=== PATIENT | female | born 2000 | race Caucasian/White ===

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

== ENCOUNTER 2022-08-24 11:19 | Emergency (ER) | payer OTHER, SELFPAY ==
[2022-08-24 11:20] VITALS: BP 127/79; PULSE 71; RESP 16; TEMP 36.8; O2SAT 99; BMI 16.9
--- NOTE | 2022-08-24 11:22 | EXP.UTC ---
Discharge Plan Disposition Patient Disposition: Home, Self-Care Condition: Good Prescriptions Prescriptions: New methylprednisolone 4 mg Tablets,Dose Pack 4 mg PO DIRECTED Qty: 21 0RF No Action fluconazole 150 mg tablet 150 mg PO Q3D Qty: 3 0RF Rx Instructions: i po q 72 hrs x 3 doses dispense 3 tabs azithromycin 250 MG tablet 250 mg PO UD DOSE PK Qty: 6 0RF Rx Instructions: Take two (2) tablets today, then one (1) tablet days #2 thru #5 methylprednisolone 4 MG tablets,dose pack 4 mg PO DIRECTED 6 Days Qty: 21 0RF ilxlysfygjbcbsl-nrtgxgjdq-FV 118 ML syrup 5 ml PO Q6HP PRN (Reason: Cough) Qty: 240 0RF Referrals Follow up/Referrals: Provider,Referral, MD [Primary Care Provider] - See instructions Activity Restrictions/Add. Instructions Additional Instructions/Restrictions: Drink plenty of fluids. Take tylenol for pain or fever. Take the medications as directed. Follow up with your regular doctor. Follow up with your dentist. GO TO THE ER FOR ANY WORSENING SYMPTOMS Clinical Impressions Clinical Impression: Jaw pain Instructions Patient Instructions: Jaw Pain: It's Not Just Stress Discharge ED Provider: Kar Ward [facility] [place] HPI General Stated complaint: LT jaw pain ear pain Time Seen by Provider: 08/24/22 11:22 History of Present Illness Provider Complaint: She reports that for the past 2 days she has had left jaw pain. She states that it feels like her left jaw catches. It is also popping frequently. She denies any injury. Related Data Previous Rx's Medication Instructions Recorded fluconazole 150 mg tablet 150 mg PO Q3D #3 tabs 02/06/20 azithromycin 250 mg tablet 250 mg PO UD DOSE PK #6 tabs 08/06/21 bhzrrfdwcahvccl-fflsastflclnnyg-EU 5 ml PO Q6HP PRN Cough #240 mL 08/06/21 2 mg-30 mg-10 mg/5 mL oral syrup methylprednisolone 4 mg tablets in 4 mg PO DIRECTED 6 days #21 08/06/21 a dose pack packets methylprednisolone 4 mg tablets in 4 mg PO DIRECTED #21 tabs 08/24/22 a dose pack Allergies Allergy/AdvReac Type Severity Reaction Status Date / Time house dust mite Allergy Verified 08/06/21 20:22 [facility] Disclaimer: The information contained in this section may have been updated after the patient was seen, as this information can be updated by other users. Social History Smoking Status: Never smoker alcohol intake: never substance use type: denies use current occupational status: employed Travel in the last 8 weeks: None ROS Obtained: Yes All systems reviewed & no additional complaints except as documented Constitutional Constitutional: Denies chills and Denies fever(s) Eyes Eyes: Denies eye discharge ENT Ears, Nose, Mouth, and Throat: Denies dizziness, Denies otalgia and Denies sore throat Cardiovascular Cardiovascular: Denies chest pain Respiratory Respiratory: Denies shortness of breath, Denies chest congestion, Denies cough, Denies stridor and Denies wheezing Gastrointestinal Gastrointestingal: Denies nausea or vomiting Musculoskeletal Musculoskeletal: Reports system reviewed and no additional complaints, except as documented and Denies arthralgias Integumentary/Breasts Skin/Breast: Denies rash Neurologic Neurologic: Denies dizziness and Denies paresthesias Allergic/Immunologic Allergic/Immunologic: Denies wheezing Physical Exam General General appearance: alert and in no apparent distress Head Head exam: atraumatic, normocephalic and normal inspection Eye Eye exam: Present normal appearance, PERRL and EOMI ENT ENT exam: Present normal exam, normal oropharynx, mucous membranes moist, TM's normal bilaterally and normal external ear exam Neck Neck exam: Present normal inspection, full ROM and trachea midline; Absent meningismus or lymphadenopathy Chest Chest inspection: Present normal inspection and symmetric chest wall rise; Absent tender
[2022-08-24 12:11] VITALS: BP 127/79; PULSE 71; RESP 16; TEMP 36.8; O2SAT 99
== END 2022-08-24 12:12 | disposition home or self-care (01) ==
PROVIDERS: Emergency Provider Nurse Practitioner Family
DX: R68.84 Jaw pain (principal)
CPT/HCPCS: 99212; 99214; G0463

== ENCOUNTER 2022-09-27 09:30 | Emergency (ER) | payer OTHER, SELFPAY ==
[2022-09-27 09:30] VITALS: BP 137/74; PULSE 78; RESP 16; TEMP 36.9; O2SAT 97; BMI 17.7
--- NOTE | 2022-09-27 09:42 | EXP.UTC ---
Discharge Plan Disposition Patient Disposition: Home, Self-Care Condition: Good Prescriptions Prescriptions: New amoxicillin [amoxicillin] 500 mg tablet 500 mg PO TID 10 Days Qty: 30 0RF nprexanlbjdumxl-yugllqwpk-IM [Bromfed DM] 2-30-10 mg/5 mL Syrup 5 ml PO Q6H PRN (Reason: Cough) Qty: 240 0RF ondansetron 4 mg Tablet,Disintegrating 4 mg PO Q8H PRN (Reason: Nausea) Qty: 12 0RF No Action fluconazole 150 mg tablet 150 mg PO Q3D Qty: 3 0RF Rx Instructions: i po q 72 hrs x 3 doses dispense 3 tabs azithromycin 250 MG tablet 250 mg PO UD DOSE PK Qty: 6 0RF Rx Instructions: Take two (2) tablets today, then one (1) tablet days #2 thru #5 methylprednisolone 4 MG tablets,dose pack 4 mg PO DIRECTED 6 Days Qty: 21 0RF pcuafbcnamlnqij-yngzisexq-HP 118 ML syrup 5 ml PO Q6HP PRN (Reason: Cough) Qty: 240 0RF methylprednisolone 4 mg Tablets,Dose Pack 4 mg PO DIRECTED Qty: 21 0RF Referrals Follow up/Referrals: Provider,Referral, MD [Primary Care Provider] - See instructions Activity Restrictions/Add. Instructions Additional Instructions/Restrictions: Drink plenty of fluids. Take tylenol or ibuprofen for pain or fever. Take the medications as directed. Follow up with your regular doctor. GO TO THE ER FOR ANY WORSENING SYMPTOMS Clinical Impressions Clinical Impression: Pharyngitis Stand Alone Forms Stand Alone Forms: Work/School Release Instructions Patient Instructions: Sore Throat, DI for Pharyngitis/Tonsillopharyngitis -- Adult Discharge ED Provider: Kar Ward [facility] General Stated complaint: sore throat, congestion Time Seen by Provider: 09/27/22 09:41 History of Present Illness Provider Complaint: She states that for the past 2 days she has had sore throat, chills, and malaise. Related Data Previous Rx's Medication Instructions Recorded fluconazole 150 mg tablet 150 mg PO Q3D #3 tabs 02/06/20 azithromycin 250 mg tablet 250 mg PO UD DOSE PK #6 tabs 08/06/21 ipdgbbkbetbwrql-ndghprvnbmulymv-QS 5 ml PO Q6HP PRN Cough #240 mL 06/03/22 2 mg-30 mg-10 mg/5 mL oral syrup methylprednisolone 4 mg tablets in 4 mg PO DIRECTED 6 days #21 08/06/21 a dose pack packets methylprednisolone 4 mg tablets in 4 mg PO DIRECTED #21 tabs 08/24/22 a dose pack amoxicillin 500 mg tablet 500 mg PO TID 10 days #30 tabs 09/27/22 fohxlmthjecocpb-aqqjnrdgypyywwf-UC 5 ml PO Q6H PRN Cough #240 mL 09/27/22 2 mg-30 mg-10 mg/5 mL oral syrup (Bromfed DM) ondansetron 4 mg disintegrating 4 mg PO Q8H PRN Nausea #12 tabs 09/27/22 tablet Allergies Allergy/AdvReac Type Severity Reaction Status Date / Time house dust mite Allergy Verified 08/06/21 20:22 [facility] Disclaimer: The information contained in this section may have been updated after the patient was seen, as this information can be updated by other users. Social History Smoking Status: Never smoker alcohol intake: never substance use type: denies use current occupational status: employed Travel in the last 8 weeks: None ROS Obtained: Yes All systems reviewed & no additional complaints except as documented Constitutional Constitutional: Reports chills and Reports fever(s) Eyes Eyes: Denies eye discharge ENT Ears, Nose, Mouth, and Throat: Reports as per HPI Cardiovascular Cardiovascular: Denies chest pain Respiratory Respiratory: Denies chest congestion and Reports cough Gastrointestinal Gastrointestingal: Reports nausea; Denies abdominal pain, constipation, cramping, diarrhea or vomiting Musculoskeletal Musculoskeletal: Denies arthralgias Integumentary/Breasts Skin/Breast: Denies rash Neurologic Neurologic: Denies paresthesias Physical Exam General General appearance: alert and in no apparent distress Head Head exam: atraumatic, normocephalic and normal inspection Eye Eye exam: Present normal appearance
[2022-09-27 09:50] LABS: UTC Strep Screen (Rapid) Negative (Negative)
[2022-09-27 09:55] VITALS: BP 137/74; PULSE 78; RESP 16; TEMP 36.9; O2SAT 97
== END 2022-09-27 09:55 | disposition home or self-care (01) ==
PROVIDERS: Emergency Provider Nurse Practitioner Family
DX: J02.9 Acute pharyngitis, unspecified (principal)
CPT/HCPCS: 87880; 99212; 99214; G0463

== ENCOUNTER 2022-12-26 10:52 | Emergency (ER) | payer OTHER, SELFPAY ==
[2022-12-26 10:59] VITALS: BP 163/105; PULSE 75; RESP 20; TEMP 36.8; O2SAT 98; BMI 16.9
[2022-12-26 11:34] VITALS: BP 134/83; PULSE 70; RESP 16; TEMP 36.8; O2SAT 98
--- NOTE | 2022-12-26 11:35 | HMH.EDGENADL ---
Discharge Plan Disposition Patient Disposition: Home, Self-Care Prescriptions Prescriptions: New prednisone 20 mg tablet 40 mg PO BID 5 Days Qty: 20 0RF No Action fluconazole 150 mg tablet 150 mg PO Q3D Qty: 3 0RF Rx Instructions: i po q 72 hrs x 3 doses dispense 3 tabs azithromycin 250 MG tablet 250 mg PO UD DOSE PK Qty: 6 0RF Rx Instructions: Take two (2) tablets today, then one (1) tablet days #2 thru #5 methylprednisolone 4 MG tablets,dose pack 4 mg PO DIRECTED 6 Days Qty: 21 0RF cpowyfcskuutxii-muzqelmxe-IE 118 ML syrup 5 ml PO Q6HP PRN (Reason: Cough) Qty: 240 0RF methylprednisolone 4 mg Tablets,Dose Pack 4 mg PO DIRECTED Qty: 21 0RF amoxicillin [amoxicillin] 500 mg tablet 500 mg PO TID 10 Days Qty: 30 0RF ydopdyzkytzgcex-edsjmpmqb-DP [Bromfed DM] 2-30-10 mg/5 mL Syrup 5 ml PO Q6H PRN (Reason: Cough) Qty: 240 0RF ondansetron 4 mg Tablet,Disintegrating 4 mg PO Q8H PRN (Reason: Nausea) Qty: 12 0RF Referrals Follow up/Referrals: Randolph Jeffrey, PT [Physical Therapist] - See instructions Kendall Trevino DO [Staff Physician] - See instructions Provider,Referral, MD [Primary Care Provider] - See instructions Activity Restrictions/Add. Instructions Additional Instructions/Restrictions: Dr. Trevino, family doctor, information here to establish care. Physical therapy information also. Take steroid once daily for 5 days. Call your family doctor to establish care for this visit to the emergency department and schedule follow-up within 48 hours to ensure improvement. If you have any worsening of your condition or any other concerning signs or symptoms, return to the emergency department or your primary care doctor for further evaluation. Clinical Impressions Clinical Impression: Arm paresthesia, left, Arm paresthesia, right, Paresthesia of right leg Stand Alone Forms Stand Alone Forms: Work/School Release Discharge ED Provider: Mauricio Sullivan General Adult HPI General Chief complaint: Extremity Problem,Nontraumatic Stated complaint: RT LEG NUMB HANDS GO IN AND OUT OF NUMBNESS Time Seen by Provider: 12/26/22 11:02 Mode of Arrival: Ambulatory Source of Information: Patient Limitations: No Limitations Description of Symptoms (Recalled from ER Triage Doc. by RN): pt to ed c/o right arm/leg numbness. pt reports she thinks she has a pinched nerve in her shoulder. pt denies any memory/speech deficit. pt denies any other symptoms. pt reports onset approx x3 days ago. History of Present Illness HPI narrative: 22-year-old female with no relevant medical history presenting with paresthesias which alternate. Patient states that this has been going on for a few days, but overall has had pain in her upper extremities for a couple of months. Painful side alternates sides between left and right, currently left-sided upper extremity, but patient started having right lower extremity numbness yesterday. No evidence of weakness of upper or lower extremities. No facial symptoms. Patient has taken neck and back, pain relief medication which has seemed to help. No bowel or bladder dysfunction, trauma, or any other concerns. Related Data Previous Rx's Medication Instructions Recorded fluconazole 150 mg tablet 150 mg PO Q3D #3 tabs 02/06/20 azithromycin 250 mg tablet 250 mg PO UD DOSE PK #6 tabs 08/06/21 vtfhrkwphwiywov-xlfdvmyjzrbwdie-CS 5 ml PO Q6HP PRN Cough #240 mL 08/06/21 2 mg-30 mg-10 mg/5 mL oral syrup methylprednisolone 4 mg tablets in 4 mg PO DIRECTED 6 days #21 08/06/21 a dose pack packets methylprednisolone 4 mg tablets in 4 mg PO DIRECTED #21 tabs 08/24/22 a dose pack amoxicillin 500 mg tablet 500 mg PO TID 10 days #30 tabs 09/27/22 vjicychosaehwnb-epnappvqlbpoywl-NH 5 ml PO Q6H PRN Cough #240 mL 09/27/22 2 mg-30 mg-10 mg/5 mL oral syrup (Bromfed DM) ondansetron 4 mg disintegrating 4 mg PO Q8H PRN Nausea #12 tabs 09/27/22 tablet
== END 2022-12-26 11:47 | disposition home or self-care (01) ==
PROVIDERS: Emergency Provider Emergency Medicine
DX: R20.2 Paresthesia of skin (principal)

== ENCOUNTER 2023-07-31 15:23 | Emergency (ER) | payer SELFPAY ==
--- NOTE | 2023-07-31 15:37 | XR_ITS ---
PROCEDURE INFORMATION: Exam: XR Right Clavicle, Complete Exam date and time: 07/31/2023 3:56 PM Age: 23 years old Clinical indication: Pain; Other: Clavicle; Additional info: Pain, lifted heavy trash bag felt pop TECHNIQUE: Imaging protocol: Radiologic exam of the right clavicle. Complete exam. Views: Any number of views. COMPARISON: CR XR SHOULDER RT MIN 2V 07/31/2023 3:53 PM FINDINGS: Bones/joints: There is no evidence of acute fracture.There is no evidence of malalignment or dislocation. Soft tissues: Normal. IMPRESSION: There is no evidence of acute fracture.There is no evidence of malalignment or dislocation.
--- NOTE | 2023-07-31 15:37 | XR_ITS ---
PROCEDURE INFORMATION: Exam: XR Right Shoulder Exam date and time: 07/31/2023 3:53 PM Age: 23 years old Clinical indication: Pain; Shoulder; Right; Additional info: Lifted heavy trashbag felt pop TECHNIQUE: Imaging protocol: Radiologic exam of the right shoulder. Views: 2 or more views. COMPARISON: CT CHEST WO CON 07/21/2020 11:37 PM FINDINGS: Bones/joints: There is no evidence of acute fracture.There is no evidence of malalignment or dislocation. Soft tissues: Normal. IMPRESSION: There is no evidence of acute fracture.There is no evidence of malalignment or dislocation.
[2023-07-31 16:20] VITALS: BP 141/93; PULSE 80; RESP 21; TEMP 36.9; O2SAT 100; BMI 17.9
--- NOTE | 2023-07-31 16:54 | ED_ITS ---
Discharge Plan Disposition Patient Disposition: Home, Self-Care Condition: Good Prescriptions Prescriptions: New prednisone 20 mg tablet 20 mg PO BID 5 Days Qty: 10 0RF No Action naproxen 375 mg tablet 375 mg PO BID Patient Comments: TAKE ONE TABLET BY MOUTH TWICE DAILY NEEDED Referrals Follow up/Referrals: Alesia Temple APRN [Primary Care Provider] - See instructions Activity Restrictions/Add. Instructions Additional Instructions/Restrictions: Keep appointment with Orthopedics as scheduled for tomorrow Take medication as prescribed Return if needed Straight to ER if any life threatening symptoms Clinical Impressions Clinical Impression: Problem of right upper extremity Stand Alone Forms Stand Alone Forms: Work/School Release Instructions Patient Instructions: Neuropathic Pain, Prednisone Discharge ED Provider: Alda Alamo [facility] General Stated complaint: WC 07/30, right shoulder pain Mode of Arrival: Ambulatory Source of Information: Patient Limitations: No Limitations Time Seen by Provider: 07/31/23 16:54 Description of Symptoms (Recalled from Triage Doc. by RN): PATIENT STATES SHE WAS AT WORK AND LIFTED A TRASH BAG THAT WAS TOO HEAVY AND FELT HER RIGHT SHOULDER POP AND THEN WENT NUMB. PATIENT REPORTS LIMITED ROM DUE TO PAIN HEENT Symptoms (Recalled from RN notes): No Resp Symptoms (Recalled from RN notes): No Skin Symptoms (Recalled from RN notes): No MS Symptoms (Recalled from RN notes): Yes Functional Status (Recalled from RN notes): WNL History of Present Illness Provider Complaint: patient states that she already has issues with her right shoulder and nerve pain States she has appointment with Orhtopedics tomorrow but she was at work today and was packing a heavy trash bag and felt something pop and electricity like pain shot down her right arm from her shoulder and it felt numb like and has continued throughout the day States that she was trying to hold off until she sees orthopedics tomorrow but boss wanted her to come in Related Data Home Medications Medication Instructions Recorded Confirmed naproxen 375 mg tablet 375 mg PO BID 07/31/23 07/31/23 Previous Rx's Medication Instructions Recorded prednisone 20 mg tablet 20 mg PO BID 5 days #10 tabs 07/31/23 Allergies Allergy/AdvReac Type Severity Reaction Status Date / Time house dust mite Allergy Verified 08/06/21 20:22 Worker's Comp Is this a Worker's Comp case?: No [facility] Disclaimer: The information contained in this section may have been updated after the patient was seen, as this information can be updated by other users. Medical History (Updated 07/31/23 @ 17:09 by Alda Alamo APRN) UTI (urinary tract infection) Depression Anxiety Social History Smoking Status: Never smoker alcohol intake: never substance use type: denies use current occupational status: employed Travel in the last 8 weeks: None ROS Obtained: Yes All systems reviewed & no additional complaints except as documented and Yes Systems reviewed as appropriate & no additional complaints except as documented Constitutional Constitutional: Reports system reviewed and no additional complaints, except as documented, Reports as per HPI, Denies frequent falls, Denies headache(s) and Denies weakness Eyes Eyes: Denies loss of vision ENT Ears, Nose, Mouth, and Throat: Reports system reviewed and no additional complaints, except as documented, Reports as per HPI, Denies abnormal hearing, Denies disequilibrium, Denies dizziness and Denies headache(s) Cardiovascular Cardiovascular: Reports system reviewed and no additional complaints, except as documented, Reports as per HPI and Denies syncope Respiratory Respiratory: Reports system reviewed and no additional complaints, except as documented and Reports as per HPI Gastrointestinal Gastrointestingal: Reports system reviewed and no additional complaints, except as documented and as per HPI Musculoskeletal Musculoskeletal: Reports system reviewed and no additional complaints, except as documented, Reports as per HPI, Denies abnormal gait and Reports other (pain and tingling in right shoulder after lifting heavy bag) Neurologic Neurologic: Reports system reviewed and no additional complaints, except as documented, Reports as per HPI, Denies abnormal gait, Denies abnormal hearing, Denies abnormal movements, Denies abnormal speech, Denies behavioral changes, Denies confusion, Denies convulsions, Denies disequilibrium, Denies dizziness, Denies focal weakness, Denies frequent falls, Denies headache(s), Denies lack of coordination, Denies loss of vision, Denies other visual disturbances, Denies restless legs, Denies seizure-like activity, Denies syncope and Denies weakness Physical Exam General General appearance: alert and in no apparent distress ENT ENT exam: Present mucous membranes moist Respiratory Respiratory exam: Present normal lung sounds bilaterally; Absent respiratory distress or wheezes Cardiovascular Cardiovascular exam: Present regular rate, normal rhythm and normal heart sounds Extremities Exam Extremities exam: Present other (pain, tingling like pain in right shoulder and clavicle area denies known injury pain started after lifting heavy trash at work, able to move fingers easily able to make fist pain/discomfort with trying to raise arm) Neurological Exam Neurological exam: Present alert, oriented X3 and normal gait Medical Decision Making [place] Inquiry Pt receiving controlled substance: No [place] was queried for this patient: No Vital Signs: 07/31/23 16:20 Temperature 98.5 F Temperature Source Oral Pulse Rate [Left Brachial] 80 Respiratory Rate 21 Blood Pressure [Left Arm] 141/93 H Blood Pressure Mean [Left Arm] 109 Blood Pressure Source [Left Arm] Automatic Cuff Blood Pressure Position [Left Arm] Sitting 02 Sat by Pulse Oximetry 100 Oxygen Delivery Method Room Air Orders (Tests/Meds): ORDERS Category Date Time Status Clavicle XR right [XR clavicle RT] Stat Exams 07/31/23 15:37 Taken XR shoulder RT min 2V Stat Exams 07/31/23 15:37 Taken Radiology Data #1: Image(s): Shoulder Image Reviewed: Yes I have reviewed radiologist's interpretation IMPRESSION: There is no evidence of acute fracture.There is no evidence of malalignment or dislocation #2: Image(s): Clavicle Image Reviewed: Yes I have reviewed radiologist's interpretation IMPRESSION: There is no evidence of acute fracture.There is no evidence of malalignment or dislocation. Medical Decision Narrative: Pateint denies pregancy
[2023-07-31 17:13] VITALS: BP 141/93; PULSE 80; RESP 21; TEMP 36.9; O2SAT 100
== END 2023-07-31 17:17 | disposition home or self-care (01) ==
PROVIDERS: Emergency Provider Nurse Practitioner; PCP Nurse Practitioner
DX: M79.601 Pain in right arm (principal); M25.511 Pain in right shoulder
CPT/HCPCS: 73000; 73030; 99212; 99214; G0463

== ENCOUNTER 2023-10-19 08:00 | Outpatient (RCR) | payer OTHER, SELFPAY | END 2023-10-19 09:30 | disposition home or self-care (01) | LOC: PT 08:00 | PROVIDERS: Visit Provider Orthopaedic Surgery | DX: M25.511 Pain in right shoulder (principal); M25.512 Pain in left shoulder; M54.6 Pain in thoracic spine | CPT/HCPCS: 97014; 97110; 97163; G0283 ==

== ENCOUNTER 2024-09-16 07:35 | Outpatient (CLI) | payer OTHER, SELFPAY ==
--- OUTSIDE RECORDS SUMMARY | 2024-09-16 07:38 | XMS_ITS | Patient Health Record ---
Author Organization [facility] Address [address] [place] [address] Care Team Providers Care Criminal Justice Social Worker Name Role Phone Yary Faulkner Unavailable [phone] Tara Asif Unavailable [phone] Delphine De Paz Unavailable [phone] Allergies No Known Allergies Reason For Referral No Information Medications Medication SIG (Take, Route, Frequency, Duration) Notes Start Date End Date Status Naproxen 375 MG Tablet TAKE ONE TABLET B Y MOUTH TWICE DAILY NEEDED Oral; Duration: 30 Days Not-Taking/PRN Cyclobenzaprine HCl 10 MG Tablet TAKE ONE TABLET BY MOUTH THREE TIMES DAILY NEEDED for back pain Oral; Duration: 5 Days Active Cryselle-28 0.3-30 MG-MCG Tablet 1 tablet Orally Once a day Not-Taking/PRN Social History Tobacco Use: Social History Observation Description Date Details (start date - stop date) Never Smoker NA - NA Social History Drugs/Alcohol: Social Info Question Answer Notes Drugs Have you used drugs other than those for medical reasons in the past 12 months? No Drug/Alcohol: Social Info Question Answer Notes AUDIT-C (Standard) Did you have a drink containing alcohol in the past year? Yes Tobacco Use: Social Info Question Answer Notes Tobacco Control (Standard) Tobacco use: Nonsmoker Additional Details Category Social Info Options Details Miscellaneous: Domestic violence: No Do you have any jainism, m oral, or cultural beliefs or customs that your provider should know about? No Would you object to blood products in the event of an emergency? No Vital Signs Heart Rate 78 /min 07/01/2024 Blood pressure diastolic 78 mm Hg 07/01/2024 Oximetry 99 % 07/01/2024 Height 69 in 07/01/2024 Blood pressure systolic 122 mm Hg 07/01/2024 Weight 128 lbs 07/01/2024 BMI 18.9 kg/m2 07/01/2024 Encounters Encounter Location Date Provider Diagnosis [facility] [address] [facility] [address] [address] [place] [address] 05/28/2024 Delphine De Paz [facility] [address] [facility] [address] [place] [address] 07/01/2024 [place] Sterilization consul t Z30.09 [facility] [address] [place] [address] 05/23/2024 Yary Faulkner Encounter for counseling regarding contraception Z30.09 [facility] [address] [facility] [address] [place] [address] 05/28/2024 Tara Asif Consultation for female sterilization Z30.09 Assessments Encounter Date Diagnosis (ICD Code) Assessment Notes Treatment Notes Treatment Clinical Notes Section Notes 05/23/2024 Encounter for counseling regarding contraception (ICD-10 - Z30.09) Contraceptive options reviewed including OCP, patch, vaginal ring, depo Provera, Nexplanon and IUD. Risks, benefits, and general uses are discussed with the patient and questions answered. Desires to schedule consultation for SALUD agrawal MD. 05/28/2024 Consultation for female sterilization (ICD-10 - Z30.09) Discussed contraceptive options and encouraged trial of IUD. Discussed surgical sterilization at age 24 has a very high rate of regret. She has no difficulty using her current form of contraception and has other very effective options she may consider prior. Discussed my experience that opinions regarding childbearing often evolve over a lifetime. I decline to schedule tubal sterilization at this time and discussed with her the reasoning behind my opinion. I have encouraged her to consider IUD or even alternate OCP for prevention which are both highly effective. 07/01/2024 Sterilization consult (ICD-10 - Z30.09) - contraceptive options reviewed - pt desires surgical sterilization - procedure reviewed as laparoscopic bilateral salpingectomy - discussed the irreversible nature of the procedure and possibility of tubal regret - surgical risks reviewed including blood loss, infection, and possible damage to bladder/bowel/u reters/blood vessels/nerves - recovery expectations reviewed - questions answered - consents signed - action sent for scheduling - RTC post-op or PRN Plan Of Treatment Next Appt Details Provider Name:Patricia Cody, 09/18/2024 08:00:00 AM, [address], [place], [address], Insurance Providers Payer Name Payer Address Payer Phone Subscriber Number Group Number Insured Name Patient Relationship to Insured Coverage Start Date Coverage End Date [facility] [address] [place] [phone] [id number] Samia Barber Self - patient is the insured Medical (General) History Medical History History ICD Code Medical History: Anxiety Surgical History Surgery Date(Month/Year) Pinky Finger surgery Broken Arm
--- OUTSIDE RECORDS SUMMARY | 2024-09-16 07:38 | XMS_ITS | Clinical Summary ---
Author Organization Healthcare Address [address] [place] [address] Care Team Providers Care Pneumatic Tester Mechanic Name Role Phone Nighat Aviles Primary Care Provider Immunizations Immunization Administration Dates Next Due DTaP 06/20/2007, 4,2002,2002,03/2002 Hep B, adult 2002,2002,2002 Hib (PRP-OMP) 04/11/2003,2002,2002 ,2002 IPV 06/20/2007,2002,2002 ,2002 MMR 06/20/2007,04/11/2003 Meningococcal MCV4O 08/13/2013 Meningococcal MPSV4 08/13/2013 Pneumococcal Conjugate PCV 7 2002,08/28/19 03,2002 Tdap 08/13/2013 Varicella 06/20/2007,04/11/2003 Family History Medical History Relation Name Comments Alcohol abuse Father Drug abuse Father Relation Name Status Comments Father Social History Tobacco Use Types Packs/Day Years Used Date Smoking Tobacco: Never Alcohol Use Standard Drinks/Week Comments No 0 (1 standard drink = 0.6 oz pur e alcohol) Comments Unknown Sex and Gender Information Value Date Recorded Sex Assigned at Not on file Legal Sex Female 7:55 PM EDT Gender Identity Not on file Sexual Orientation Not on file Last Filed Vital Signs Vital Sign Reading Time Taken Comments Blood Pressure 104/68 04/03/2019 1:39 PM EST Pulse 66 04/03/2019 1:39 PM EST Temperature 36.7 C (98.1 F) 04/03/2019 1:39 PM EST Respiratory Rate - - Oxygen Saturation - - Inhaled Oxygen Concentration - - Weight 50.4 kg (111 lb) 06/03/2019 11:08 AM EDT Height 172.8 cm (5' 8.03 ) 04/03/2019 1:39 PM ES T Body Mass Index - - Plan of Treatment Health Maintenance Due Date Last Done Comments [facility]-Depression Screening 2002 [facility]-Infant/Child/Adol SDOH Screenings 2002 HPV Vaccines (1 - 3-dose series) 2017 [facility]- SDOH Screenings 2020 [facility]-Adult SDOH Screenings 2020 [facility]-Pap Smear 2023 [facility]-DTaP,Tdap,and Td Vaccines (7 - Td or Tdap) 08/14/2023 08/13/2013, 06/20/2007, 07/15/2003, Additional history exists [facility]-HZFKR-18 Vaccine ( - 2023- season) 2023 [facility]-Influenza Vaccine (#1) 2024 [facility]-Zoster Vaccines (1 of 2) 2052 06/20/2007, 04/11/2003 [facility]-Hepatitis B Vaccines Completed 003, 2002, 2002 [facility]-Pneumococcal Vaccine: Pediatrics (0 to 5 Years) and At-Risk Patients (6 to 49 Years) Aged Out 2002, 2002, 2002 No longer eligible based on patient's age to complete this topic [facility]-HIB Vaccines Completed 04/11/2003, , 2002, Additional history exists [facility]-IPV Vaccines Completed 06/20/2007, , 2002, Additional history exists [facility]-Varicella Vaccines Completed 06/20/2007, 2003 [facility]-Hepatitis A Vaccines Completed 05/08/2018, 09/05 [facility]-Rotavirus Vaccines Aged Out No lo nger eligible based on patient's age to complete this [place] [address] [address] [facility] MEDICAID Care Teams Pneumatic Tester Mechanic Relationship Specialty Start Date End Date Nighat Aviles PA [address] [place] [address] [place] [address] PCP - General 07/17/20
--- OUTSIDE RECORDS SUMMARY | 2024-09-16 07:38 | XMS_ITS | Clinical Summary ---
Author Organization [employer] ([place], [place], [place], [place]) Address [address] [place] [address] Care Team Providers Care Gas Load Dispatcher Name Role Phone Unavailable Primary Care Provider Unavailabl e Allergies No known active allergies Medications naproxen (NAPROSYN) 375 MG tablet Take 1 tablet (375 mg total) by mouth 2 (two) times daily as needed. 07/03/2023 Active norgestrel-ethin yl estradioL (LO/OVRAL) 0.3-30 mg-mcg per tablet Take 1 tablet by mouth daily. Active Family History Medical History Relation Name Comments Diabetes Other High blood pressure Other Relation Name Status Comments Other Social History Tobacco Use Types Packs/Day Years Used Date Smoking Tobacco: Never Smokeless Tobacco: Never Tobacco Cessation:Counseling Given: Not Answered Food Insecurity Answer Date Recorded Food run out past 12 months Not on file 08/05 Food did not last past 12 months Not on file 08/31/2023 Employment Answer Date Recorded Help finding and keeping a job Not on file 0 08/31/2023 Family and Community Support Answer Charan e Recorded Help with Day to Day Activities Not on file 08/31/2023 Feeling Lonely or Isolated Not on file 08/30 Educational Attainment Answer Date Cliff rded Speak language other than Indonesian at home Not on file 08/31/2023 Want help with school or training Not on file 08/31/2023 Substance Use Answer Date Recorded Used prescription meds for non-medical reasons N ot on file 08/31/2023 Used illegal drugs past 12 months Not on file 08/31/2023 Comments Unknown Sex and Gender Information Value Date Recorded Sex Assigned at Not on file Legal Sex Female 4:28 PM CDT Gender Identity Not on file Sexual Orientation Not on file Last Filed Vital Signs Vital Sign Reading Time Taken Comments Blood Pressure 131/71 10/31/2023 11:10 AM EDT Pulse 75 10/31/2023 11:10 AM EDT Temperature - - Respiratory Rate - - Oxygen Saturation - - Inhaled Oxygen Concentration - - Weight 55.3 kg (122 lb) 10/31/2023 11:10 AM EDT Height 175.3 cm (5' 9 ) 10/31/2023 11:10 AM EDT Body Mass Index 18.02 10/31/2023 11:10 AM EDT Plan of Treatment Health Maintenance Due Date Last Done Comments Depression Screening (12+) 2014 HIV Screening 2017 Meningococcal B Vaccine (1 of 2 - Standard) 2018 Hepatitis C Screening 2020 Pap Smear 2023 DTAP/TDAP/TD VACCINES (7 - Td or Tdap) 08/14/2023 08/13/2013, 06/20/2007, 07/15/2003, Additional history exists COVID-19 VACCINE ( - 2023- season) 2023 Tobacco Cessation Counseling and Screening (12+) 10/30/2024 10/31/2023 Influenza Vaccine (#1) 2024 Pneumococcal Vaccine: 0-49 Years Aged Out 2002, 2002, 2002 No longer eligible based on patient's age to complete this topic Insurance [employer] [facility] [place]
--- OUTSIDE RECORDS SUMMARY | 2024-09-16 07:38 | XMS_ITS | Data Portability ---
Author Organization [employer] [facility] Address [address] [place] [address] Assessment No assessment recorded. Plan of Treatment Reminders Order Date Submit Date Provider Last Modified By Organization Details Last Modified Time Details Appointments None recorded. Lab None recorded. Referral None recorded. Procedures None recorded. Surgeries None recorded. Imaging XR, shoulder, 2 or more view 2023 024 KAVYA Not available 4 08:48:28 XR, thoracic spine 2023 024 KAVYA Not available 4 08:48:19 Medication Orders None recorded. Patient TargetsNo targets recorded. Patient InstructionsNo instructions recorded. Reason for Referral None Reported. Results Created Date Observation Date Name Description Value Unit Range Abnormal Flag Note LastModifiedBy Organization Detail LastModifiedTime 06/21/19 24 XR, thora cic spine No observ ation record ed. [email or web address] Not Available 2023 15:06:14 06/21/19 24 XR, shoul heather, 2 or more view No observ ation record ed. Not Available 07/27 14:19:17 07/31/19 24 07/31/2023 XR, shoul heather, 2 or more view No observ ation record ed. [facility] [address], [place], [id number], 08/15/2023 09:31:00 07/31/19 24 07/31/2023 XR, clavi gabriela No observ ation record ed. [email or web address], [place], [id number], 08/15/2023 09:30:51 Result Notes None recorded. Medical Equipment None Reported. Allergies No known drug allergies Medications Name Sig Start Date Stop Date Status Note LastModified by Organization Details LastModified Time cyclobenzap rine 10 mg tablet Take 1 tablet 3 times a day by oral route as needed, for back pain. active Not Available Not Available No t Available amoxicillin 500 mg capsule TAKE 1 CAPSULE BY MOUTH THREE TIMES DAILY FOR 10 DAYS 06/19 completed Not Available Not Available Not Available naproxen 375 mg tablet TAKE ONE TABLET BY MOUTH TWICE DAILY NEEDED active Not Available Not Available No t Available prednisone 20 mg tablet TAKE ONE TABLET BY MOUTH THREE TIMES DAILY FOR 3 DAYS active Not Available Not Available No t Available methylpredn isolone 4 mg tablets in a dose pack TAKE DIRECTED 06/19 completed Not Available Not Available Not Available bromphenira mine-pseudo ephedrine-D M 2 mg-30 mg-10 mg/5 mL oral syrup TAKE 5 ML BY MOUTH EVERY 6 HOURS NEEDED FOR COUGH 06/19 completed Not Available Not Available Not Available ondansetron 4 mg disintegrat ing tablet DISSOLVE 1 TABLET IN MOUTH EVERY 8 HOURS NEEDED FOR NAUSEA 06/19 completed Not Available Not Available Not Available Cryselle (28) 0.3 mg-30 mcg tablet Take 1 tablet every day by oral route. active Not Available Not Available No t Available cyclobenzap rine 5 mg tablet TAKE 1 TABLET BY MOUTH NEEDED THREE TIMES DAILY FOR 10 DAYS 06/19 completed Not Available Not Available Not Available Vitals Date Recorded Body weight Body mass index (BMI) Body height Heart rate Oxygen saturation Oxygen saturation in Arterial blood by Pulse oximetry Systolic And Diastolic Provider Name and Address Organization Details Last Updated DateTime 4 96147.4 8 g 17.9 kg/m2 175.26 cm 59 /min 99 % 99 % 130/79 mm[Hg] Haylee Berry txtr, [employer] 14:17:10 Social History Question Answer Notes LastModified by Organizat ion Details LastModified Time Tobacco Smoking Status Never Smoker Haylee hernandez [facility] 06/20/2023 14:13:55 Is Your Home Air Conditioned? Yes Information not available 06/20/2023 Are You Blind Or Do You Have Difficulty Seeing? No Information not available 06/20/2023 What Is Your Level Of Caffeine Consumption? Heavy Information not available 06/20/2023 Are You A Caregiver? No Information not available 06/20/2023 In The 14 Days Before Symptom Onset, Have You Had Close Contact With A Laboratory-confir med COVID-19 While That Case Was Ill? No Information not available 06/20/2023 In The 14 Days Before Symptom Onset, Have You Had Close Contact With A Person Who Is Under Investigation For COVID-19 While That Person Was Ill? No Information not available 06/20/2023 Have You Been To An Area Known To Be High Risk For COVID-19? No Information not available 06/20/2023 Are You Deaf Or Do You Have Serious Difficulty Hearing? No Information not available 06/20/2023 What Type Of Diet Are You Following? GLUTENFREE Information not available 06/20/2023 Who Is Your Employer? [employer] Information not available 06/20/2023 Have There Been Any Changes To Your Family Or Social Situation? No Information no t available 06/20/2023 What Was The Date Of Your Most Recent Tobacco Screening? 06/20/2023 Information not available 06/20/2023 Have You Ever Been Counseled For Unhealthy Alcohol Use? No Information not available 06/20/2023 What Is Your Relationship Status? Single Information not available 06/20/2023 Do You Use Your Seat Belt Or Car Seat Routinely? Yes Information not available 06/20/2023 Do You Have Smoke And Carbon Monoxide Detectors In Your Home? Yes Information not available 06/20/2023 Has Tobacco Cessation Counseling Been Provided? No Information not available 06/20/2023 Have You Recently Traveled Abroad? No Information not available 06/20/2023 Do You Have Difficulty Walking Or Climbing Stairs? No Information not available 06/20/2023 What Contraceptive Method Was Reported At Start Of This Visit? Combined Oral Contraceptive Pills Information not available 06/20/2023 Sex: Female Functional Status Question Answer Note LastModified by Organizat ion Details LastModified Time Do you use any illicit or recreational drugs? No Information not available 06/20/2023 What is your level of alcohol consumption? Occasional Information not available 06/20/2023 Are you currently employed? Yes Information not available 06/20/2023 Do you have transportation difficulties? No Information not available 06/20/2023 Are you able to walk? YESWOREST Information not available 06/20/2023 Do you have difficulty doing errands alone? No Information not available 06/20/2023 Are you able to care for yourself? Yes Information n ot available 06/20/2023 Do you have difficulty dressing or bathing? No Information not available 06/20/2023 Mental Status Question Answer Note LastModified by Organization D etails LastModified Time Do you have difficulty concentrating, remembering or making decisions? No Information no t available 06/20/2023 Family History Nothing Reported. Medical History No medical history recorded. Gynecological History Statement/Question Response Date of Last Pap Smear Most Recent Mammogram Obstetrics History GPAL:G 0 P 0 0 0 0 Past Encounters Encounter ID Performer Location Encounter Start Date Encounter Closed Date Diagnosis/Indication Diagnosis SNOMED-CT Code Diagnosis ICD10 Code Diagnosis Note [id number] Alesia [address] [address] 06/20/2023 13:39:29 06/20/2023 15:07:31 Thoracic back pain 660869312 M54.6 Pain of le ft shoulder joint 1098353283 3095836 M25.512 Body mass index less than 20 581966776 Z68.1 Health Concerns Section Related Observation LastModified by Organization Detai ls LastModified Time None Recorded Concern Status LastModified by Organization Details LastModified Time None Recorded Advance Directives Directive None Recorded Payers Insurance Date Sequence Insurance Name Policy Number Policy Snider Covered Member ID Snider Member ID Guarantor Name 12/09/2023 [place] GEORGIE Barber 12/07/2023 1 [facility] [place] GEORGIE Barber [id number] Samia Barber Notes Date Note Type Note Provider Name and Address Organization Details Recorded Time 06/20/2023 text/html pt here today to est PCP. pt states that she has been having back and shoulder issues for several months. pt states that around 7 months pt has been having back pain and left shoulder pain. in jan 2023 she went to the ER and the doc told her she probably had a herniated disc and told her she needed some steroids and sent her on her way . pt states that she went to another doc and she didnt like her so she never went back. pt states that a few months before jan she had been going to the chiropractor and that didnt seem to help. pt states that her lower back hurts all the time but it is manageable and that it gets worse if she stands for a long period of time. and that her left shoulder hurts and has a burning pain sensation more so after she works or stands for a long period such as washing the dishes. 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 assessment WNL today, however pt states that she hasnt really done anything today to flare it up . i am going to start out with ordering xray to r/o any herniated disc, nerve issues scoliosis etc. Alesia Temple APRN [address] [facility], [place], [address], [facility] [employer] 06/20/2023 15:46:29 OBGyn Episode No OBEpisode recorded.
--- OUTSIDE RECORDS SUMMARY | 2024-09-16 07:38 | XMS_ITS | Referral Summary ---
Author Organization [employer] ([place], [place], [place], [place]) Address [address] [place] [address] Care Team Providers Care Apartment Community Manager Name Role Phone Unavailable Primary Care Provider Unavailabl e Allergies No known active allergies Medications naproxen (NAPROSYN) 375 MG tablet Take 1 tablet (375 mg total) by mouth 2 (two) times daily as needed. 07/03/2023 Active norgestrel-ethin yl estradioL (LO/OVRAL) 0.3-30 mg-mcg per tablet Take 1 tablet by mouth daily. Active Social History Tobacco Use Types Packs/Day Years [...] Date Cliff rded Speak language other than Kuwaiti at home Not on file 08/31/2023 Want [...] 10/31/2023 11:10 AM EDT Plan of Treatment Not on file Insurance [facility] [place]
[2024-09-16 07:41] LABS: Microscopic, Urine URINE MICROSCOPIC (MICROSCOPIC)
[2024-09-16 08:56] LABS: Bilirubin,Urine Negative (Negative); Color,Urine YELLOW (Yellow); Glucose,Urine (UA) Negative (Negative); Ketones,Urine Negative (Negative); Leukocyte Esterase,Urine Negative (Negative); PH,Urine 6.0 (5.0-8.5); Protein,Urine Negative (Negative); Specific Gravity, Urine 1.020 (1.005-1.030); Urobilinogen,Urine 0.2 EU/dl (0.2)
[2024-09-16 09:14] LABS: Bacteria,Urine Trace /lpf; RBC,Urine Occasional #/hpf (0-3); WBC,Urine Occasional #/hpf (0-3)
== END 2024-09-16 23:59 | disposition home or self-care (01) ==
LOC: LAB 07:37
PROVIDERS: Visit Provider Obstetrics & Gynecology
DX: Z01.810 Encounter for preprocedural cardiovascular examination (principal)
CPT/HCPCS: 81001; 87086

== ENCOUNTER 2024-10-30 12:57 | Outpatient (CLI) | payer OTHER, SELFPAY ==
--- OUTSIDE RECORDS SUMMARY | 2024-09-18 04:00 | XMS_ITS ---
Author Organization [facility] Address [address] [place] [address] Care Team Providers Care Rag Boiler Name Role Phone Yary Faulkner Unavailable [phone] Patricia Cody Unavailable [phone] REASON FOR VISIT LAP CHUYITA SLAP Encounters Encounter Location Date Provider Diagnosis [facility] [address] [place] [address] 09/18/2024 Patricia Cody Plan Of Treatment No Information Progress Notes * Erika BARBEROB: 3 (24 yo F)Acc No.[id number]:09/18/2024 Patient: Samia Estrada Provider: Maya Cody MD :2000 A ge:24 Y S ex:Female Date:09/18/2024 Address:[address] [place] [address] K[place] [id number] Subjective: * Chief Complaints: * L AP CHUYITA SLAP Billing Information: * Procedure Codes: * Electronic signature of Anyi Coyd MD on 10/31/2024 at 12:27 PM EDT Sign off status: Pending Visit Status: C HK (Check Out) * Provider: Maya Cody MD Date: 09/18/2024 Generated for Alyssa lee/Aj/Andressmitting on: 10/31/2024 12:27 PM EDT
[2024-10-30 16:29] LABS: Coronavirus 19, PCR Not Detected (NotDetected); Influenza A, PCR Not Detected (NotDetected); Influenza B, PCR Not Detected (NotDetected)
--- OUTSIDE RECORDS SUMMARY | 2024-10-31 12:27 | XMS_ITS | Clinical Summary ---
Author Organization [facility] Address [address] [place] [address] Care Team Providers Care Organ Tuner Name Role Phone Nighat Aviles Primary Care [...] 08/14/2023 08/13/2013, 06/20/2007, 07/15/2003, Additional history exists SGR-POUAN-06 Vaccine ( - 2023- season) 2023 UKY-Influenza [...] complete [place] [address] [facility] MEDICAID Care Teams Organ Tuner Relationship Specialty Start Date End Date Nighat Aviles PA [address] [place] [id number] PCP - General 07/17/20
--- OUTSIDE RECORDS SUMMARY | 2024-10-31 12:27 | XMS_ITS | Clinical Summary ---
Author Organization [employer] ([place], [place], [place], [place]) Address [address] [place] [address] Care Team Providers Care Director Radio News Name Role Phone Unavailable Primary Care Provider [...] Date Cliff rded Speak language other than Luxembourgish at home Not on file 08/31/2023 Want [...] patient's age to complete this topic Insurance [facility] [place]
--- OUTSIDE RECORDS SUMMARY | 2024-10-31 12:27 | XMS_ITS | Referral Summary ---
Author Organization [employer] ([place], [place], [place], [place]) Address [address] [place] [address] Care Team Providers Care Outside Industrial Sales Representative Name Role Phone Unavailable Primary Care Provider [...] Date Cliff rded Speak language other than Latvian at home Not on file 08/31/2023 Want [...] Plan of Treatment Not on file Insurance [facility] [place]
--- OUTSIDE RECORDS SUMMARY | 2024-10-31 12:27 | XMS_ITS | Patient Health Record ---
Author Organization [facility] Address [address] [facility] [address] [place] [address] Care Team Providers Care Diversional Therapist'S Assistant Name Role Phone Yary Faulkner Unavailable [phone] Rashidleilani Tara Unavailable [phone] Patricia Coyd Unavailable [phone] BaldevDelphine Unavailable [phone] Allergies No Known Allergies Results Component Value Reference Range Notes TISSUE PATHOLOGY EXAM Reviewed date:09/22/2024 10:26:17 AM Interpretation:Benign Performing Lab: Notes/Report: LAB AP CASE REPORT Surgical Pathology R eport Case: [id number] LAB AP CASE REPORT Authorizing Provider : Patricia Cody MD Collected: 09/18/2024 08:31 AM LAB AP CASE REPORT Ordering Location: [facility] Received: 09/18/2024 09:39 AM LAB AP CASE REPORT LABORATORY LAB AP CASE REPORT Pathologist: Kwesi Singh MD LAB AP CASE REPORT Specimen: Fallopian Tubes, Bilateral LAB AP CLINICAL INFORMATION Encounter for sterilization LAB AP FINAL DIAGNOSIS FALLOPIAN TUBE, B ILATERAL SALPINGECTOMIES: LAB AP FINAL DIAGNOSIS Benign fallopian tubes with complete transections. LAB AP FINAL DIAGNOSIS GJK LAB AP FINAL DIAGNOSIS Electronically si gned by Cedric Singh MD on 09/20/2024 at 1050 EDT BEAKER LAB AP GROSS DESCRIPTION 1. Fallopian Tubes, Bilateral. BEAKER LAB AP GROSS DESCRIPTION Received in formalin labeled bilateral fallopian tubes are 2 mildly tortuous, fimbriated fallopian tubes undesignated as to laterality and averaging 7 cm long by 0.8 cm in diameter. The serosa is pink, smooth and glistening and sectioning of each fallopian tube reveals an unremarkable stellate lumen. Cyber Security Specialist sections of each tube to include the bisected fimbria and cross-sections are submitted separately in 1A-1B HDM. LAB AP MICROSCOPIC DESCRIPTION The slides are reviewed and demonstrate histopathologic features supporting the above rendered diagnosis. Lab specimens received at a [facility].?See result details for the performing location information. Reason For Referral No Information Medications Medication [...] Domestic violence: No Do you have any baptism, m oral, or cultural beliefs or customs that your provider should know about? No Would you object to blood products in the event of an emergency? No Vital Signs Heart Rate 78 /min 07/01/2024 Oximetry 99 % 07/01/2024 Blood pressure diastolic 78 mm Hg 07/01/2024 Height 69 in 07/01/2024 Blood pressure systolic 122 mm Hg 07/01/2024 Weight 128 lbs 07/01/2024 BMI 18.9 kg/m2 07/01/2024 Encounters Encounter Location Date Provider Diagnosis [facility] [address] [facility] [address] [place] [address] [facility] [address] [facility] [address] [place] [address] 07/01/2024 [facility] Sterilization consul t Z30.09 [facility] [address] [place] [address] 05/23/2024 Yary Faulkner Encounter for counseling regarding contraception Z30.09 [facility] [address] [facility] [address] [place] [address] 05/28/2024 Tara Asif Consultation for female sterilization Z30.09 [facility] [address] [place] [address] 09/18/2024 Patricia Cody Assessments Encounter Date Diagnosis (ICD Code) Assessment Notes Treatment Notes Treatment Clinical Notes Section Notes 05/23/2024 Encounter for counseling regarding contraception (ICD-10 - Z30.09) Contraceptive options reviewed including OCP, patch, vaginal ring, depo Provera, Nexplanon and IUD. Risks, benefits, and general uses are discussed with the patient and questions answered. Desires to schedule consultation for SALUD gross/ . 05/28/2024 Consultation for female sterilization (ICD-10 - [...] RTC post-op or PRN Plan Of Treatment No Information Insurance Providers Payer Name Payer Address Payer Phone Subscriber Number Group Number Insured Name Patient Relationship to Insured Coverage Start Date Coverage End Date [facility] [address] [place] [address] [id number] Samia Barber Self - patient is the insured Medical (General) History Medical History History ICD Code Medical History: Anxiety Surgical History Surgery Date(Month/Year) Beny Finger surgery Broken Arm
== END 2024-10-30 23:59 | disposition home or self-care (01) ==
LOC: LAB.DROPOF 10-31 12:21
PROVIDERS: PCP Student in an Organized Health Care Education/Training Program; Visit Provider Student in an Organized Health Care Education/Training Program
DX: J06.9 Acute upper respiratory infection, unspecified (principal)
CPT/HCPCS: 87631

== ENCOUNTER 2025-02-05 14:39 | Outpatient (CLI) | payer OTHER, SELFPAY ==
--- OUTSIDE RECORDS SUMMARY | 2024-09-18 03:00 | XMS_ITS ---
Author Organization [facility] Address [address] [place] [address] Care Team Providers Care Produce Team Lead Name Role Phone Yary Faulkner Unavailable [phone] Patricia Cody Unavailable [phone] REASON FOR VISIT LAP CHUYITA SLAP Encounters Encounter Location Date Provider Diagnosis [facility] [address] [place] [address] 09/18/2024 Patricia Cody Plan Of Treatment No Information Progress Notes * Erika BARBEROB: 3 (24 yo F)Acc No.[id number]:09/18/2024 Patient: Samia Estrada Provider: Maya Cody MD :2000 A ge:24 Y S ex:Female Date:09/18/2024 Address:[address] [place] [address] K[place]EN [id number] Subjective: * Chief Complaints: * L AP CHUYITA SLAP Billing Information: * Procedure Codes: * Electronic signature of Anyi Cody MD on 02/05/2025 at 02:43 PM EST Sign off status: Pending Visit Status: C HK (Check Out) * Provider: Maya Cody MD Date: 0 09/18/2024 Generated for Alyssa lee/Aj/Andressmitting on: 1 04/08/2024 02:43 PM EST
--- OUTSIDE RECORDS SUMMARY | 2025-02-05 14:43 | XMS_ITS | Clinical Summary ---
Author Organization [employer] ([place], [place], [place], [place], [place]) Address [address] [place] [address] Care Team Providers Care Client Program Manager Name Role Phone Unavailable Primary Care [...] Date Cliff rded Speak language other than Malagasy at home Not on file 08/31/2023 Want [...] 08/14/2023 08/13/2013, 06/20/2007, 07/15/2003, Additional history exists Tobacco Cessation Counseling and Screening (12+) 10/30/2024 10/31/2023 COVID-19 VACCINE ( - 2023- season) 2024 Influenza Vaccine (#1) 2024 Pneumococcal Vaccine: 0-49 Years Aged Out 2002, 2002, 2002 No longer eligible based on patient's age to complete this topic Insurance [facility] [place]AN [place]
--- OUTSIDE RECORDS SUMMARY | 2025-02-05 14:43 | XMS_ITS | Referral Summary ---
Author Organization [employer] ([place], [place], [place], [place], [place]) Address [address] [place] [address] Care Team Providers Care Religion Instructor Name Role Phone Unavailable Primary Care Provider [...] Date Cliff rded Speak language other than Macanese at home Not on file 08/31/2023 Want [...] Plan of Treatment Not on file Insurance [facility]
--- OUTSIDE RECORDS SUMMARY | 2025-02-05 14:43 | XMS_ITS | Clinical Summary ---
Author Organization [facility] Address [address] [place] [address] Care Team Providers Care Swift Tender Name Role Phone Nighat Aviles Primary Care Provider [phone] Immunizations Immunization Administration Dates Next Due DTaP [...] 08/14/2023 08/13/2013, 06/20/2007, 07/15/2003, Additional history exists YER-HNJWP-09 Vaccine ( - 2024- season) 2024 UKY-Influenza Vaccine (#1) 2024 UKY-Zoster Vaccines (1 [...] patient's age to complete this topic Insurance [facility] MEDICAID Care Teams Swift Tender Relationship Specialty Start Date End Date Nighat Aviles PA [address] [place] [address] PCP - General 07/17/20
--- OUTSIDE RECORDS SUMMARY | 2025-02-05 14:43 | XMS_ITS | Patient Health Record ---
Author Organization [facility] Address [address] [facility] [address] [place] [address] Care Team Providers Care Rabbet Operator Name Role Phone Yary Faulkner Unavailable [phone] Rashidleilani Tara Unavailable [phone] Patricia Cody Unavailable [phone] BaldevDelphine Unavailable [phone] Allergies No Known Allergies Results Component Value Reference Range Notes TISSUE PATHOLOGY EXAM Reviewed date:09/22/2024 10:26:17 AM Interpretation:Benign Performing Lab: Notes/Report: LAB AP CASE REPORT Surgical Pathology R eport Case: [id number] LAB AP CASE REPORT Authorizing Provider : Patricia Cody MD Collected: 09/18/2024 08:31 AM LAB AP CASE REPORT Ordering Location: [facility] Received: 09/18/2024 09:39 AM LAB AP CASE [...] fallopian tube reveals an unremarkable stellate lumen. Hot Mill Shearer sections of each tube to include the bisected fimbria and cross-sections are submitted separately in 1A-1B HDM. LAB AP MICROSCOPIC DESCRIPTION The slides are reviewed and demonstrate histopathologic features supporting the above rendered diagnosis. Lab specimens received at a [facility].?See result details for the performing location information. [...] Domestic violence: No Do you have any latter day, m oral, or cultural beliefs or customs [...] 07/01/2024 Encounters Encounter Location Date Provider Diagnosis [facility] [address] [facility] [address] [place] [address] [facility] [address] [facility] [address] [place] [address] 07/01/2024 [facility] Sterilization consul t Z30.09 [facility] [address] [place] [address] 05/23/2024 Yary Faulkner Encounter for counseling regarding contraception Z30.09 [facility] [address] [facility] [address] [facility] [place] [address] 05/28/2024 Tara Asif Consultation for female sterilization Z30.09 [facility] [address] [place] [address] 09/18/2024 Patricia Cody Assessments Encounter Date Diagnosis [...] Insured Coverage Start Date Coverage End Date [facility] [address] [place] [address] [id number] Samia Barber Self - patient is the insured Medical (General) History Medical History History ICD Code Medical History: Anxiety Surgical History Surgery Date(Month/Year) Beny Finger surgery Broken Arm
== END 2025-02-05 23:59 | disposition home or self-care (01) ==
LOC: RAD 14:40
PROVIDERS: PCP Student in an Organized Health Care Education/Training Program; Visit Provider Nurse Practitioner
DX: M25.512 Pain in left shoulder (principal)

== ENCOUNTER 2025-03-03 08:45 | Outpatient (CLI) | payer OTHER, SELFPAY ==
--- OUTSIDE RECORDS SUMMARY | 2024-09-18 03:00 | XMS_ITS ---
Author Organization [facility] Address [address] [place] [address] Care Team Providers Care Floor Waxer Name Role Phone Yary Faulkner Unavailable [phone] Patricia Cody Unavailable [phone] REASON FOR VISIT LAP CHUYITA SLAP Encounters Encounter Location Date Provider Diagnosis [facility] [address] [place] [address] 09/18/2024 Patricia Cody Plan Of Treatment No Information Progress Notes * Erika BARBEROB: 3 (24 yo F)Acc No.[id number]:09/18/2024 Patient: Samia Estrada Provider: Maya Cody MD :2000 A ge:24 Y S ex:Female Date:09/18/2024 Address:[address] [place] [address] K[place] [id number] Subjective: * Chief Complaints: * L AP CHUYITA SLAP Billing Information: * Procedure Codes: * Electronic signature of Anyi Cody MD on 03/03/2025 at 08:48 AM EST Sign off status: Pending Visit Status: C HK (Check Out) * Provider: Maya Cody MD Date: 0 09/18/2024 Generated for Alyssa lee/Aj/Andressmitting on: 08:48 AM EST
--- OUTSIDE RECORDS SUMMARY | 2025-03-03 08:48 | XMS_ITS | Referral Summary ---
Author Organization [employer] ([place], [place], [place], [place], [place]) Address [address] [place] [address] Care Team Providers Care Amusement Ride Operator Name Role Phone Unavailable Primary Care Provider [...] Date Cliff rded Speak language other than Czech at home Not on file 08/31/2023 Want [...] Plan of Treatment Not on file Insurance [facility]
--- OUTSIDE RECORDS SUMMARY | 2025-03-03 08:48 | XMS_ITS | Clinical Summary ---
Author Organization Healthcare Address [address] [place] [address] Care Team Providers Care Salesperson Floor Coverings Name Role Phone Nighat Aviles Primary Care [...] Date Last Done Comments [facility]-Depression Screening 2002 [facility]-/Child/Adol SDOH Screenings 2002 HPV Vaccines (1 - 3-dose series) 2017 [facility]- SDOH Screenings 2020 [facility]-Adult SDOH Screenings 2020 [facility]-Pap Smear 2023 [facility]-DTaP,Tdap,and Td Vaccines (7 - Td or Tdap) 08/14/2023 08/13/2013, 06/20/2007, 07/15/2003, Additional history exists [id number] Vaccine ( - 2024- season) 2024 [facility]-Influenza [...] complete this [place] [address] [id number] [facility] MEDICAID Care Teams Salesperson Floor Coverings Relationship Specialty Start Date End Date Nighat Aviles PA [address] [place] [address] PCP - General 07/17/20
--- OUTSIDE RECORDS SUMMARY | 2025-03-03 08:48 | XMS_ITS | Clinical Summary ---
Author Organization [employer] ([place], [place], [place], [place], [place]) Address [address] [place] [address] Care Team Providers Care Stock Counter Name Role Phone Unavailable Primary Care Provider [...] Date Cliff rded Speak language other than Emirati at home Not on file 08/31/2023 Want [...] patient's age to complete this topic Insurance [facility] [place]
--- OUTSIDE RECORDS SUMMARY | 2025-03-03 08:48 | XMS_ITS | Patient Health Record ---
Author Organization [facility] Address [address] [place] [address] Care Team Providers Care Blockmason Name Role Phone Yary Faulkner Unavailable [phone] Rashidleilani Tara Unavailable [phone] Patricia Cody Unavailable [phone] BaldevDelphine Unavailable [phone] Allergies No Known Allergies Results Component Value Reference Range Notes TISSUE PATHOLOGY EXAM Reviewed date:09/22/2024 10:26:17 AM Interpretation:Benign Performing Lab: Notes/Report: LAB AP CASE REPORT Surgical Pathology R eport Case: [id number] LAB AP CASE REPORT Authorizing Provider : Patricia Cody MD Collected: 09/18/2024 08:31 AM LAB AP CASE REPORT Ordering Location: [facility] Received: 09/18/2024 09:39 AM LAB AP [...] fallopian tube reveals an unremarkable stellate lumen. Steel Layout Worker sections of each tube to include the bisected fimbria and cross-sections are submitted separately in 1A-1B HDM. LAB AP MICROSCOPIC DESCRIPTION The slides are reviewed and demonstrate histopathologic features supporting the above rendered diagnosis. Lab specimens received at a [facility].?See result details for the performing location information. [...] Domestic violence: No Do you have any tenriism, m oral, or cultural beliefs or customs [...] 07/01/2024 Encounters Encounter Location Date Provider Diagnosis [facility] [address] [facility] [address] [place] [address] [facility] [address] [facility] [address] [place] [address] 07/01/2024 [facility] Sterilization consul t Z30.09 [facility]AW [address] [place] [address] 05/23/2024 Yary Faulkner Encounter for counseling regarding contraception Z30.09 [facility] [address] [place] [address] 05/28/2024 Tara Asif Consultation for female sterilization Z30.09 [facility] [address] [place] [address] 09/18/2024 Patricia Cody Assessments Encounter Date Diagnosis [...] Insured Coverage Start Date Coverage End Date [facility] [address] [place] [address] [id number] Samia Barber Self - patient is the insured Medical (General) History Medical History History ICD Code Medical History: Anxiety Surgical History Surgery Date(Month/Year) Beny Finger surgery Broken Arm
--- NOTE | 2025-03-03 08:50 | MR_ITS ---
FINAL REPORT TECHNIQUE: Multiplanar and multisequence imaging of the shoulder was obtained without contrast. CLINICAL HISTORY: L SHOULDER PAIN x 2 years feels like a pinched nerve COMPARISON: None FINDINGS: Bones/Joint: Bone marrow signal intensity is normal. There is no fracture, edema, or pathologic marrow replacement. The AC joint is intact. Rotator Cuff: There is no full thickness rotator cuff tear. There is no fatty atrophy of the rotator cuff musculature. Labrum: No labral tear is identified. The biceps labral complex is intact. The inferior glenohumeral ligament is intact. Other: The more distal biceps tendon is located within the bicipital groove. There is no joint effusion. Remaining soft tissues are within normal limits. IMPRESSION: No acute osseous abnormality, rotator cuff tendon tear, or convincing labral tear. Reviewed, Interpreted and Dictated by Shaniqua King MD Transcribed by Nichole Willis Authenticated and [facility]
== END 2025-03-03 23:59 | disposition home or self-care (01) ==
LOC: RAD 08:46
PROVIDERS: PCP Nurse Practitioner; Visit Provider Nurse Practitioner
DX: M25.512 Pain in left shoulder (principal)
CPT/HCPCS: 73221